=== PATIENT | male | born 1980 | race Two or more races ===

== ENCOUNTER 2018-04-02 11:21 | Emergency (ER) | payer OTHER ==
[~2018-04-02] VITALS: Ht 165.1 cm; Wt 77.1 kg
[~2018-04-02 11:21] MED LIST: BYSTOLIC10 MG ORAL; UNOBMED
[2018-04-02 11:25] VITALS: BP 153/95
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
[2018-04-02] MEDS ORDERED: IBUPROFEN600 MG ORAL (12:09)
[2018-04-02 12:27] LABS: APPEARANCE,URINE CLEAR; BILIRUBIN, URINE NEGATIVE (NEGATIVE); COLOR,URINE PALE YELLOW; GLUCOSE, URINE (UA) NEGATIVE (NEGATIVE); KETONES,URINE NEGATIVE (NEGATIVE); LEUKOCYTE ESTERASE ,URINE NEGATIVE (NEGATIVE); NITRITE,URINE NEGATIVE (NEGATIVE); PH,URINE 5 (4.5-8.0); PROTEIN,URINE NEGATIVE (NEGATIVE); UROBILINOGEN,URINE NORMAL MG/DL (0.0-1.0)
[2018-04-02 13:01] VITALS: BP 138/98
== END 2018-04-02 13:16 | disposition home or self-care (01) ==
LOC: EDBD 11:21 → EMR 12:32
DX: S39.011A Strain of muscle, fascia and tendon of abdomen, initial encounter (principal); V43.52XA Car driver injured in collision with other type car in traffic accident, initial encounter; Y92.410 Unspecified street and highway as the place of occurrence of the external cause
CPT/HCPCS: 81003; 99283